=== PATIENT | female | born 1990 | race American Indian/Alaskan Native ===

== ENCOUNTER 2017-08-19 13:46 | Inpatient (IN) | payer MEDICAID ==
[2017-08-19 14:56] VITALS: BMI 25.4
[2017-08-19 15:15] VITALS: PULSE 64; RESP 18
[2017-08-19] MEDS ORDERED: Lactated Ringer's 1,000 ML IV SCH ×2 (15:15)
[2017-08-19 15:16] VITALS: O2SAT 100
[2017-08-19 15:50] LABS: BASO % 0.3 % (0.0-2.0); EOS % 0.2 % (0.0-4.0); HEMOGLOBIN 10.2 g/dL (12.0-16.0); LYMPH # 1.8 K/uL (1.0-4.3); LYMPH % 18.7 % (20.0-40.0); MEAN CELL VOLUME 76.2 fl (81.0-99.0); MEAN CORPUSCULAR HEMOGLOBIN 24.6 pg (27.0-31.0); MEAN CORPUSCULAR HGB CONC 32.3 g/dL (33.0-37.0); MEAN PLATELET VOLUME 8.7 fl (7.2-11.7); MONO # 0.7 K/uL (0.0-0.8); MONO % 7.5 % (0.0-10.0); NEUT # 6.9 K/uL (1.8-7.0); NEUT % 73.3 % (50.0-75.0); RBC 4.14 Mil/uL (3.80-5.20); RED CELL DISTRIBUTION WIDTH 16.4 % (11.5-14.5); WHITE BLOOD COUNT 9.4 K/uL (4.8-10.8)
[2017-08-19 15:59] LABS: SQUAMOUS EPITHIAL < 1 /hpf (0-5); URINE BACTERIA RARE (<OCC); URINE BILIRUBIN NEGATIVE (NEGATIVE); URINE CLARITY SLIGHTY-CLOUDY (Clear); URINE COLOR YELLOW (YELLOW); URINE GLUCOSE (UA) NEG (Normal); URINE LEUKOCYTE ESTERASE TRACE Leu/uL (Negative); URINE PROTEIN NEGATIVE (NEGATIVE)
[2017-08-19 16:00] LABS: URINE BLOOD TRACE (NEGATIVE)
--- NOTE | 2017-08-19 19:01 | OBHP ---
Datetime: 08/19/2017 15:24 Admit Comment, IP Provider: 27 yo with IUP at 41.0 weeks gestational age who earlier present ed to [facility] with complaints of low pelvic pain. Denies ctx, vaginal bleeding, loss of fluid. Reports g ood movement. ROS: denies headache, dizziness, chest pain, dyspnea, nausea, vomiting, urinary symptoms PNc: [place]. states she has not been given induction date yet. OBhx: 1 prior NVD in [place] at 41 weeks MEd hx: denies Surg hx: denies Family hx: denies chronic illness in family Soc hx: denies tobacco drug alcohol use Allergies: nkda MEds: PNV PE: Gen: nad, alert, awake Resp: ctabl, normal effort CV: S1S2, rrr Abd: +bs, soft Ext: no edema SVE: 2cm, 60%, -3 irregular ctx on toco Assessment: 27 yo at 41 weeks gestational age; not in active labor, appropriate for induc tion. Plan: Admit to labor and delivery, induction with cervidil. Pt seen/discussed with Dr. Roque. [id number] OB Hospitalist Addendum: Pt seen and examined by me. Agree w/ above. 27 yo at 41 wks, c/ o lower abdominal pain. On exam, pt appears comfortable. Pt has suprapubic tenderness. Ua and cx s ent. Pt to be admitted for induction of labor given gestational age. FHT reassuring. GBS negative as of 07/11/[address] cervidil for induction. (ES) Extremities - PN: Normal Abdomen - PN: Normal Back - PN: Normal Lungs - PN: Normal Heart - PN: Normal Neurologic - PN: Normal HEENT - PN: Normal General - PN: Normal FHR - Baseline A Provider: 125 EGA AdmitDate IP: 41.0 IP Indication for Induction: Postterm IP Chief Complaint: Maternal discomfort NICHD Variability Prov Fetus A: Moderate 6-25bpm Dilatation, Provider: 2 Effacement, Provider: 60 Station, Provider: -3 Genitourinary Exam: Normal Datetime: 08/19/2017 14:50 IP Adm Impression: Postterm, intrauterine IP Admit Plan: Admit to unit NICHD Accel Fetus A IP Provider: [id number] FHR Category Provider Fetus A: Category I
[2017-08-19] MEDS ORDERED: Oxytocin 30 units/LR 500ML 30 U/500 ML BAG IV PRN (20:38)
[2017-08-20] MEDS ORDERED: Lidocaine 2% Inj (20ml) ONE (00:34)
[2017-08-20] MEDS ORDERED: Benzocaine/Menthol SPRAY TOP PRN ×2 (02:11→08:03)
[2017-08-20] MEDS ORDERED: Oxycodone/Acetaminophen 5/325 mg Tab PO PRN ×2 (02:11→08:03)
--- NOTE | 2017-08-20 02:23 | OBDS ---
DELIVERY PERSONNEL Delivery Doctor: Nic Roque MD Digital Production Manager: Francis MATERNAL INFORMATION Delivery Anesthesia: None Medications in Delivery: Pitocin 30 units in 500 mls/Pitocin 20 units in 1000 mls Provider Comments: Pt progressed to complete and pushed to deliver a viable female in direct OP position through meconium-stained fluid at 01:54 am. Tight nuchal cord doubly clamped and cut at the perineum. Apgars 9 and 10. Wt 6#14, 3135 gms. placed on warmer w/ waiting Dr. Dandy summers. Cord blood collected. Placenta delivered spontaneously intact w/ a 3vc at 01:56 am. B leeding controlled w/ bimanual massage. Vagina and perineum intact. Rectum intact. Pt and baby to lerated the procedure well. EBL 300mL LABOR SUMMARY EDC: 08/12/2017 00:00 No. Babies in Womb: 1 Attempted: No Labor Anesthesia: None LABOR INFORMATION Reason for Induction: Postterm Complete Dilatation: 08/20/2017 01:41 Cervical Ripening Agents: Cervidil Oxytocin: N/A Group B Beta Strep: Negative Antibiotics # of Doses: N/A Antibiotics Time of Last Dose: N/A Steroids Given: None Reason Steroids Not Administered: Not Applicable MEMBRANES Membranes Rupture Method: Spontaneous Rupture of Membranes: 08/19/2017 23:30 Length of Rupture (hrs): 2.40 Amniotic Fluid Color: Light Meconium Amniotic Fluid Amount: Moderate Amniotic Fluid Odor: Normal STAGES OF LABOR Stage 2 hrs: 0 Stage 2 min: 13 Stage 3 hrs: 0 Stage 3 min: 2 VAGINAL DELIVERY Episiotomy: None Laceration Extension: N/A Laceration Type: None Laceration Repair: Not Applicable Initial Vag Sponge Count: 15 Final Vag Sponge Count: 15 Initial Vag Sharps Count: 0 Final Vag Sharps Count: 0 Sponge Count Correct: Yes Sharps Count Correct: N/A BABY A INFORMATION Delivery Date/Time: 08/20/2017 01:54 Method of Delivery: Vaginal Born in Route : No : N/A Forceps: N/A Vacuum Extraction: N/A Shoulder Dystocia : No SHOULDER DYSTOCIA BABY A Infant Delivery Date/Time: 08/20/2017 01:54 PRESENTATION/POSITION BABY A Presentation: Cephalic Cephalic Presentation: Vertex Breech Presentation: N/A PLACENTA INFORMATION BABY A Placenta Delivery Time : 08/20/2017 01:56 Placenta Method of Delivery: Spontaneous Placenta Status: Delivered SCORES BABY A Heart Rate 1 min: >100 bpm Resp Effort 1 min: Good Cry Reflex Irritability 1 min: Cough or Sneeze or Pulls Away Muscle Tone 1 min: Active Motion Color 1 min: Body [place], Extremities Blue Resuscitation Effort 1 min: N/A SCORE 1 MIN: 9 Heart Rate 5 min: >100 bpm Resp Effort 5 min: Good Cry Reflex Irritability 5 min: Cough or Sneeze or Pulls Away Muscle Tone 5 min: Active Motion Color 5 min: Completely [place] Resuscitation Effort 5 min: N/A SCORE 5 MIN: 10 INFORMATION BABY A Gestational Age at Delivery: 41.1 Gestational Status: Post-term Infant Outcome : Liveborn Infant Condition : Stable Sex: Female IDENTIFICATION/MEDS BABY A ID Band Number: [id number] ID Band Location: Left Leg; Left Arm WEIGHT/LENGTH BABY A Birthweight (gms): 3135 Infant Weight (lb): 6 Weight (oz): 15 CORD INFORMATION BABY A No. Cord Vessels: 3 Nuchal Cord : Around Neck x1, Tight Nuchal Cord Other: N/A True Knot: N/A Infant Cord pH Baby Arterial: N/A Cord pH Baby Venous: N/A Cord Blood Taken: Yes Banking/Donate Info: N/A Infant Suction: Mouth; Nose ASSESSMENT BABY A Complications: None Physical Findings at Delivery: Within Normal Limits Respirations: Appears Normal Clinical Researcher/ALS Called : No Care By: Dr. Wiley Transferred To: Remains with Mother
[2017-08-20 06:24] LABS: HEMOGLOBIN 9.7 g/dL (12.0-16.0); MEAN CELL VOLUME 75.7 fl (81.0-99.0); MEAN CORPUSCULAR HEMOGLOBIN 24.7 pg (27.0-31.0); MEAN CORPUSCULAR HGB CONC 32.6 g/dL (33.0-37.0); RBC 3.93 Mil/uL (3.80-5.20); RED CELL DISTRIBUTION WIDTH 16.7 % (11.5-14.5); WHITE BLOOD COUNT 16.6 K/uL (4.8-10.8)
--- NOTE | 2017-08-20 10:31 | OBPPN ---
Datetime: 08/20/2017 10:29 PP Progress Note Prov: ppd 0 pt sleeping not awakened Vital Signs Provider PP: Within Normal Limits
[2017-08-21] MEDS ORDERED: Tdap Vaccine 0.5 ml Vial (10-64 yrs) IM ONE (05:24)
[2017-08-21 07:06] LABS: HEMOGLOBIN 10.2 g/dL (12.0-16.0); MEAN CELL VOLUME 76.8 fl (81.0-99.0); MEAN CORPUSCULAR HEMOGLOBIN 24.6 pg (27.0-31.0); MEAN CORPUSCULAR HGB CONC 32.1 g/dL (33.0-37.0); RBC 4.13 Mil/uL (3.80-5.20); RED CELL DISTRIBUTION WIDTH 16.3 % (11.5-14.5); WHITE BLOOD COUNT 13.7 K/uL (4.8-10.8)
--- NOTE | 2017-08-21 14:41 | OBPPN ---
Datetime: 08/21/2017 06:20 PP Pain Prov: Within normal limits PP Nausea Prov: Denies PP Flatus Prov: Yes PP BM Prov: Yes PP Impression Prov: Normal progression PP Plan Prov: Continue present management PP Progress Note Prov: PPD 1 S: 27 y/o female s/p on 08/20/17 via induction, evaluated on PPD1. Pt was seen and e xamined at bedside this AM. No overnight events. Denies abdominal pain. Ambulating. Breast feeding (w ith formula supplementation) without difficulty. Lochia is similar to menses volume. +Flatus/+BM. De nies fever/chills, diarrhea, nausea/vomiting, chest pain, dyspnea, and dizziness. No Anemia symptoms- lightheadedness, palpitations, sob, cp. O: VS: Stable overnight GEN: NAD Cardio: S1S2, no murmurs Lungs: clear breath sounds b/l, no wheezing Abdomen: BS+, appropriate tenderness to palpation. Uterus is firm and at the level of the umbilic us. EXT: No edema, calves nontender NEURO/PSYCH: AAOx3, no grossly focal deficits, preserved affect and mood. H/H (post ): 9.7/29.8 Assessment/Plan: 27 y/o female s/p on 08/20/17, doing well on PPD1. Pt remains afebri le, tolerating pain with medication. Tolerating diet. Anticipating d/c on 08/22. Continue with curren t management. No anemia symptoms. Will start po iron. Encourage and ambulating Ibuprofen 600mg q6 and Percocet 1 tablet 5-325mg q6 prn for pain Start Ferrous Sulfate 325mg BID for anemia Dermoplast prn Tdap ordered Clint Scruggs PGY1 The patient was seen with the resident I agree with the note Vital Signs Provider PP: Reviewed
[2017-08-22] MEDS ORDERED: Tdap Vaccine 0.5 ml Vial (10-64 yrs) IM ONE (09:00)
[2017-08-22 23:12] VITALS: BP 140/64; TEMP 97.3
== END 2017-08-22 14:00 | disposition home or self-care (01) | DRG 373 ==
LOC: H.EROB2 13:46 → H.L&D 14:56 → H.OB/GYN 08-20 03:45
PROVIDERS: ADMIT Obstetrics & Gynecology; ATTEND Obstetrics & Gynecology
PROC: 4A1HXCZ Monitoring of Products of Conception, Cardiac Rate, External Approach (ICD-10-PCS; 2017-08-19)
PROC: 10E0XZZ Delivery of Products of Conception, External Approach (ICD-10-PCS; principal; 2017-08-20)
DX: O69.1XX0 Labor and delivery complicated by cord around neck, with compression, not applicable or unspecified (principal); O99.02 Anemia complicating childbirth; O77.0 Labor and delivery complicated by meconium in amniotic fluid; O48.0 Post-term pregnancy; Z3A.41 41 weeks gestation of pregnancy; Z37.0 Single live birth